=== PATIENT | male | born 1990 | race African-American/Black ===

== ENCOUNTER 2017-12-28 20:08 | Emergency (ER) | payer MEDICAID, OTHER ==
[~2017-12-28] VITALS: Ht 182.9 cm; Wt 79.4 kg
[2017-12-28] MEDS ORDERED: cefTRIAXone SOD 1,000 MG VL IM ONE (21:30)
[2017-12-28] MEDS ORDERED: MORPHINE SULFATE 4 MG/ML SYR/VIAL IV ONE (21:30)
[2017-12-28] MEDS ORDERED: ONDANSETRON HCL 4 MG/2 ML VIAL IV ONE (21:30)
[2017-12-28 23:07] VITALS: BP 138/75
[2017-12-28] MEDS ORDERED: LIDOCAINE W/ EPINEPHRINE 1% 20ML VIAL SC ONE (23:30)
[2017-12-28] MEDS ORDERED: LIDOCAINE W/ EPINEPHRINE 1 % INJ 30ML ONE (23:40)
== END 2017-12-29 01:32 | disposition home or self-care (01) ==
LOC: EDBD 20:08 → EDUNIT# 20:08 → ER 20:21
DX: S02.652A Fracture of angle of left mandible, initial encounter for closed fracture (principal); S01.81XA Laceration without foreign body of other part of head, initial encounter; S01.01XA Laceration without foreign body of scalp, initial encounter; Y08.89XA Assault by other specified means, initial encounter; Y93.89 Activity, other specified; Y99.8 Other external cause status; Y92.89 Other specified places as the place of occurrence of the external cause
CPT/HCPCS: 12013; 70450; 70486; 72125; 96372; 96374; 96375; 99284; J0696; J2001; J2270; J2405